=== PATIENT | female | born 1940 | race Caucasian/White ===

== ENCOUNTER 2023-11-01 17:50 | Emergency (ER) | payer MEDICARE, OTHER, SELFPAY ==
[2023-11-01 17:52] VITALS: BP 122/70
--- NOTE | 2023-11-01 18:32 | ED.GENMED ---
History of Present Illness
General
Chief Complaint: Fainting Sensation
Time Seen by Provider: 11/01/23 18:31
History of Present Illness
History of Present Illness:
83-year-old female presents the emergency department for evaluation of dizziness and weakness that occurs after exercising, states this has been ongoing for 'most of my adult life' however today it felt more extreme than normal. Typically the
symptoms last 15 minutes and she is able to sit and relax and feel improved. She states to me 'today it happened in front of her friends so she forced me to calm'. Currently feels normal with no symptoms.
Review of Systems
Review of Systems
Allergies reviewed?: Yes
Constitutional: Reports no symptoms
Phy Exam
Physical Exam
Physical Exam:
GEN: Well appearing, NAD, WDWN
HEENT: Oral mucosa moist, no scleral icterus
Cardiac: Regular rate and rhythm, no murmurs
Lung: No respiratory distress, no tachypnea, lungs clear to auscultation bilaterally
MSK: No gross deformity or injuries
Skin: Good color, no pallor or jaundice, no rashes
Neuro: AO x3, moves all extremities freely
Psych: Calm, cooperative
Course
Orders/Labs/Results
Orders:
Orders
11/01/23 18:32
Electrocardiogram (*1) Urgent
Reason for Study: Vertigo / Dizzy
EKG- Treatment ONCE
11/01/23 19:10
CMP [Comprehensive Metabolic Panel] Urgent
Complete Blood Count/With Diff Urgent
11/01/23 19:43
Orthostatic VS- Treatment ONCE
Abnormal Lab Results
11/01/23
19:10
Hct 35.5 L %
(37.0-47.0)
Absolute Lymphs (auto) 1.1 L 10^3/uL
(1.2-3.4)
Neutrophils % 76.8 H %
(42.2-75.2)
Lymphocytes % 14.6 L %
(20.5-51.1)
AST 39 H U/L
(14-36)
11/01/23 19:10
11/01/23 19:10
Vital Signs
Initial and Last Documented VS:
Initial Vital Signs
Temp Pulse Resp BP Pulse Ox
98.3 F 61 16 122/70 98
11/01/23 17:52 11/01/23 17:52 11/01/23 17:52 11/01/23 17:52 11/01/23 17:52
Last Documented Vital Signs
Temp Pulse Resp BP Pulse Ox
96.3 F L 61 16 114/65 100
11/01/23 19:36 11/01/23 19:36 11/01/23 17:52 11/01/23 19:36 11/01/23 19:36
MDM/Problems Addressed
MDM/Problems Addressed:
Patient's EKG shows a sinus bradycardia with no ectopy or ischemic changes. Her labs are reassuring. Recommend she follow-up with cardiology for Holter monitor given these frequent dizzy spells that are particularly worse after exercise.
*Critical Care Note
Total Time (30-74mins, 75-104mins- exclusive of procedures): Not Applicable
ED Attending Note
-
Portions of this chart may have been created with voice recognition software.� Occasional wrong word or��sound alike� substitutions may have occurred due to the inherent limitations of voice recognition software.
Discharge Plan
Departure
Patient Disposition: Home (Routine Discharge)
Date of Disposition: 11/01/23
Time of Disposition: 19:58
Patient with high blood pressure during this ER visit?: No
Discharge Problem:
Weakness
Instructions: Near Fainting (DC)
Referrals:
Shantal Abraham DO [Family Provider] -
Halle Lozano MD [Active] -
Activity Restrictions/Additional Instructions:
Follow up with cardiology as listed to schedule a Holter Monitor
If you cannot get an appointment, your primary care physician may be able to facilitate the Holter Monitor as well
Interventions
Interventions:
*Risk Screen - Suicide Last Done: 11/01/23 17:52
*General Assessment Last Done: 11/01/23 17:52
*Neglect/Abuse Screening Last Done: 11/01/23 17:52
ED- Fall Risk Assessment Last Done: 11/01/23 19:41
*ED COVID-19 Vaccine History Last Done: 11/01/23 21:41
*Nursing Disposition Last Done: 11/01/23 20:15
ED- Cardiac Assessment Last Done: 11/01/23 19:41
ED- Neurological Assessment Last Done: 11/01/23 19:41
Discharge Date and Time
Discharge Date/Time: 11/01/23 20:15
Print Language: BERMUDIAN
[2023-11-01 19:20] LABS: % Basophils 0.9 % (0-2); % Eosinophils 0.9 % (0-6); % Immature Granulocytes 0.3 % (0-0.5); % Lymphocytes 14.6 % (20.5-51.1); % Monocytes 6.5 % (1.7-9.3); % Neutrophils 76.8 % (42.2-75.2); Absolute Basophils 0.1 10^3/uL (0-0.2); Absolute Eosinophils 0.1 10^3/uL (0-0.7); Absolute Lymphocytes 1.1 10^3/uL (1.2-3.4); Absolute Monocytes 0.5 10^3/uL (0.1-0.6); Absolute Neutrophils 5.7 10^3/uL (1.4-6.5); Hematocrit 35.5 % (37.0-47.0); Hemoglobin 12.7 g/dL (12.0-16.0); Mean Corp Hgb Conc. 35.8 g/dL (33.0-37.0); Mean Corpuscular Hgb 30.1 pg (27.0-31.0); Mean Corpuscular Volume 84.1 fL (81.0-99.0); Mean Platelet Volume 9.1 fL (7.4-10.4); Nucleated Red Blood Cells % 0 %; Platelet Count 171 10^3/uL (130-400); Red Blood Cell Count 4.22 10^6/uL (4.20-5.40); Red Cell Dist. Width 13.8 % (11.5-14.5); White Blood Cell Count 7.4 10^3/uL (4.8-10.8)
[2023-11-01 19:36] VITALS: BP 114/65
[2023-11-01 19:41] LABS: ALT (SGPT) 18 U/L (0-35); AST (SGOT) 39 U/L (14-36); Albumin 4.3 g/dl (3.5-5.0); Alkaline Phosphatase 51 U/L (38-126); Blood Urea Nitrogen 13 mg/dl (7-17); Calcium 9.6 mg/dl (8.4-10.2); Carbon Dioxide 25 mmol/L (22-30); Chloride 99 mmol/L (98-107); Glucose 90 mg/dl (70-99); Potassium 4.3 mmol/L (3.5-5.1); Sodium 135 mmol/L (135-145); Total Bilirubin 0.6 mg/dl (0.2-1.3); Total Protein 6.4 g/dl (6.3-8.2); eGFR > 60.00
[2023-11-01 19:43] VITALS: BP 133/75; BP 138/71; BP 145/82; PULSE 61; PULSE 63; PULSE 71
== END 2023-11-01 20:15 | disposition home or self-care (01) ==
LOC: EMR 17:50
PROVIDERS: EMERGENCY PHYSICIAN Emergency Medicine; FAMILY PHYSICIAN Family Medicine
DX: R53.1 Weakness (principal)
CPT/HCPCS: 99283; 80053; 85025; 93005

== ENCOUNTER → 2024-01-05 13:44 | Outpatient (REF) | payer MEDICARE, OTHER, SELFPAY | LOC: RAD 13:44 | PROVIDERS: ATTENDING PHYSICIAN Family Medicine; REFERRING PHYSICIAN Internal Medicine Cardiovascular Disease | DX: E78.49 Other hyperlipidemia (principal) | CPT/HCPCS: 75571 ==

== ENCOUNTER → 2024-02-10 12:39 | Outpatient (REF) | payer MEDICARE, OTHER, SELFPAY | LOC: RCS 12:39 | PROVIDERS: ATTENDING PHYSICIAN Internal Medicine Cardiovascular Disease; FAMILY PHYSICIAN Family Medicine | DX: R42 Dizziness and giddiness (principal) | CPT/HCPCS: 93306 ==